=== PATIENT | female | born 1960 | race Caucasian/White ===

== ENCOUNTER 2019-09-03 09:53 | Emergency (ER) | payer BC, OTHER ==
[2019-09-03 10:07] VITALS: BP 152/90; PULSE 89
[2019-09-03] MEDS ORDERED: Diphtheria,Pertussis(Acell),Tetanus Vaccine 0.5 ML Syringe IM ONE (10:14)
--- NOTE | 2019-09-03 10:28 | EDM.PDOC ---
ED HPI GENERAL MEDICAL PROBLEM - General Chief Complaint: Laceration Stated Complaint: cut hand Time Seen by Provider: 09/03/19 10:10 Source of Information: Reports: Patient History Limitations: Reports: No Limitations - History of Present Illness INITIAL COMMENTS - FREE TEXT/NARRATIVE: Patient presents to ER with a laceration to her left palm. States was cutting an avocado and slipped through, cutting her hand. She was concerned as she noted swelling to the mid hand and was worried that she may have cut a nerve as it did puncture quite deep. Denies any issues with range of motion to her hand. Last tetanus > 10 years Onset: Today, Sudden Duration: Minutes: Location: Reports: Upper Extremity, Left Quality: Reports: Ache Severity: Mild Context: Reports: Trauma Associated Symptoms: Reports: No Other Symptoms Left Hand Pain Score (Numeric/FACES): 4 - Related Data Allergies Allergy/AdvReac Type Severity Reaction Status Date / Time No Known Drug Allergies Allergy Other Verified 09/03/19 10:07 seasonal Allergy Other Uncoded 01/05/15 07:25 Home Meds: Home Meds Losartan Potassium 50 mg PO DAILY 09/03/19 [History] atorvaSTATin [Lipitor] 10 mg PO BEDTIME 09/03/19 [History] hydroCHLOROthiazide [Hydrochlorothiazide] 25 mg PO DAILY 09/03/19 [History] Past Medical History Cardiovascular History: Reports: High Cholesterol, Hypertension Other Musculoskeletal History: HX OF RX R ARM Social & Family History - Tobacco Use Smoking Status *Q: Unknown Ever Smoked ED ROS GENERAL - Review of Systems Review Of Systems: Comprehensive ROS is negative, except as noted in HPI. ED EXAM, SKIN/RASH Exam: See Below Exam Limited By: No Limitations General Appearance: Alert, WD/WN, No Apparent Distress Neurological: Alert, Oriented Skin: Warm, Wound/Incision (Patient has 1 cm superficial laceration to left palm. Has good flexion and extension of her digits. No sensory loss. Does have mild swelling to mid hand, bruising. ) ED SKIN PROCEDURES - Laceration/Wound Repair Left Hand Appearance: Superficial Distal NVT: Neuro & Vascular Intact, No Tendon Injury Anesthetic Type: Local Local Anesthesia - Lidocaine (Xylocaine): 1% Plain Local Anesthetic Volume: 3cc Skin Prep: Chlorhexidine (Hibiciens), Saline Exploration/Debridement/Repair: Wound Explored, In a Bloodless Field, Explored to Base Closed with: Sutures Lac/Wound length In cm: 1 Suture Size: 4-0 # of Sutures: 1 Suture Type: Nylon, Interrupted, Simple Sterile Dressing Applied: Provider Tetanus Status Addressed: Yes Complications: No Course - Vital Signs Last Recorded V/S: Last Vital Signs Temp 98.2 F 09/03/19 10:00 Pulse 89 09/03/19 10:00 Resp 18 09/03/19 10:00 BP 152/90 H 09/03/19 10:00 Pulse Ox 97 09/03/19 10:00 - Orders/Labs/Meds Orders: Active Orders 24 hr Category Date Time Status Vaccines to be Administered [RC] PER UNIT ROUTINE Care 09/03/19 10:14 Ordered Meds: Medications Discontinued Medications Generic Name Dose Route Start Last Admin Trade Name Enrique PRN Reason Stop Dose Admin Diphtheria/Tetanus/Acell Pertussis 0.5 ml 09/03/19 10:14 09/03/19 10:22 Adacel IM 09/03/19 10:15 0.5 ml .ONCE ONE Administration Lidocaine HCl 5 ml 09/03/19 10:14 09/03/19 10:21 Xylocaine-Mpf 1% INJECT 09/03/19 10:15 5 ml ONETIME ONE Administration Departure - Departure Time of Disposition: 10:27 Disposition: Home, Self-Care 01 Condition: Good Clinical Impression: Broken skin, Laceration of hand - Discharge Information *PRESCRIPTION DRUG MONITORING PROGRAM REVIEWED*: No *COPY OF PRESCRIPTION DRUG MONITORING REPORT IN PATIENT GOYO: No Instructions: Sutured Wound Care Referrals: Coco Hutson PA-C [Primary Care Provider] - Forms: ED Department Discharge Additional Instructions: 1. Keep wound clean and dry 2. Follow wound care instructions, may change bandage after 24 hours 3. Watch for any signs of infection 4. Return in 10 days for suture removal 5. Follow up with your provider for any concerns Sepsis Event Note (ED) - Evaluation Sepsis Screening Result: No Definite Risk - Focused Exam Vital Signs: Vital Signs Temp Pulse Resp BP Pulse Ox 09/03/19 10:00 98.2 F 89 18 152/90 H 97 - My Orders Last 24 Hours: My Active Orders 09/03/19 10:14 Vaccines to be Administered [RC] PER UNIT ROUTINE - Assessment/Plan Last 24 Hours: My Active Orders 09/03/19 10:14 Vaccines to be Administered [RC] PER UNIT ROUTINE
== END 2019-09-03 10:34 | disposition home or self-care (01) ==
LOC: VM.ED 09:53
DX: S61.412A Laceration without foreign body of left hand, initial encounter (principal); I10 Essential (primary) hypertension; E78.00 Pure hypercholesterolemia, unspecified; Z23 Encounter for immunization; Z91.09 Other allergy status, other than to drugs and biological substances; Z79.899 Other long term (current) drug therapy; W26.0XXA Contact with knife, initial encounter
CPT/HCPCS: 12001; 90471; 90715; 99282; J2001